=== PATIENT | female | born 1960 | race Two or more races ===

== ENCOUNTER 2019-10-06 13:57 | Outpatient (CLI) | payer OTHER ==
[2019-10-06] MEDS ORDERED: LISI-167 PO (14:43)
[2019-10-06 15:19] LABS: ALANINE AMINOTRANSFERASE 29 U/L (12-78); ALBUMIN 3.8 g/dL (3.4-5.0); ANION GAP 7 mmol/L (5-15); CHLORIDE 110 mmol/L (98-107)
[2019-10-06 15:29] LABS: ALKALINE PHOSPHATASE 172 U/L (45-117); BILIRUBIN,TOTAL 0.4 mg/dL (0.2-1.0); TOTAL PROTEIN 7.8 g/dL (6.4-8.2)
== END 2019-10-06 23:59 | disposition home or self-care (01) ==
LOC: STAR 13:57
PROVIDERS: ATTEND Surgery
DX: Z01.818 Encounter for other preprocedural examination (principal); Z11.59 Encounter for screening for other viral diseases; N63.10 Unspecified lump in the right breast, unspecified quadrant
CPT/HCPCS: 36415; 80053; U0001

== ENCOUNTER → 2019-10-06 | Outpatient (CLI) | payer OTHER ==
[~2019-10-06] MED LIST: LIDOCAINE 1%, 20ML ONE; LIDOCAINE 1%-EPI 1:100K, 20ML ONE; LISI-167 PO; SODIUM BICARBONATE 4.2%, 5ML ONE
== END | disposition home or self-care (01) ==
LOC: CFH 09:02
PROVIDERS: ATTEND Surgery
DX: D24.1 Benign neoplasm of right breast (principal)
CPT/HCPCS: 19281; J3490

== ENCOUNTER 2019-10-11 09:11 | Day surgery (SDC) | payer OTHER ==
[~2019-10-11] VITALS: Ht 165.1 cm; Wt 84.8 kg
[~2019-10-11 09:11] MED LIST changes: +BUPIVACAINE/PF-EPI 0.5% 1:200K ONE; -LIDOCAINE 1%, 20ML ONE; -LIDOCAINE 1%-EPI 1:100K, 20ML ONE; -SODIUM BICARBONATE 4.2%, 5ML ONE
[2019-10-11] MEDS ORDERED: LACTATED RINGERS 1,000 ML IV SCH ×2 (09:16→09:30)
[2019-10-11] MEDS ORDERED: PROPOFOL 50 ML ONE (09:17)
[2019-10-11] MEDS ORDERED: FENTANYL PF 250 MCG/5ML ONE (09:17)
[2019-10-11] MEDS ORDERED: MIDAZOLAM 1 MG/ML, 2ML ONE (09:17)
[2019-10-11] MEDS ORDERED: PROMETHAZINE 25 MG/ML, 1ML IVPush PRN (09:30)
[2019-10-11] MEDS ORDERED: CHLORHEXIDINE 15 ML UDC MM ONE ×2 (09:30)
[2019-10-11] MEDS ORDERED: DIAZEPAM 5 MG/ML, 2ML IVPush PRN (09:30)
[2019-10-11] MEDS ORDERED: ONDANSETRON 2MG/ML, 2ML IVPush PRN (09:30)
[2019-10-11] MEDS ORDERED: MEPERIDINE/PF 25MG/0.5ML IVPush PRN (09:30)
[2019-10-11] MEDS ORDERED: DIPHENHYDRAMINE 50 MG/ML, 1ML IVPush PRN (09:30)
[2019-10-11] MEDS ORDERED: OXYcodone 5 MG/5 ML ORAL.SOL UDC PO PRN (09:30)
[2019-10-11] MEDS ORDERED: EPHEDRINE 50 MG/ML, 1ML IVPush PRN (09:30)
[2019-10-11] MEDS ORDERED: morphine SULFATE 10 MG/ML, 1ML IVPush PRN (09:30)
[2019-10-11] MEDS ORDERED: FENTANYL PF 100 MCG/2ML IV PRN (09:30)
[2019-10-11] MEDS ORDERED: MIDAZOLAM 1 MG/ML, 2ML IV PRN (09:30)
[2019-10-11] MEDS ORDERED: ACETAMINOPHEN 325 MG TABLET PO PRN (09:30)
[2019-10-11] MEDS ORDERED: EPHEDRINE 50 MG/ML, 1ML IM PRN (09:30)
[2019-10-11] MEDS ORDERED: DEXAMETHASONE 4 MG/ML, 1ML ONE (09:40)
[2019-10-11] MEDS ORDERED: CEFAZOLIN 1,000 MG ONE (09:40)
[2019-10-11] MEDS ORDERED: PROPOFOL 10 MG/ML, 20ML ONE (09:40)
[2019-10-11] MEDS ORDERED: ONDANSETRON 2MG/ML, 2ML ONE (09:40)
[2019-10-11] MEDS ORDERED: ACETAMINOPHEN 650 MG/20.3 ML UDC ONE (10:43)
[2019-10-11] MEDS ORDERED: OXYcodone 5 MG/5 ML ORAL.SOL UDC ONE (10:48)
== END 2019-10-11 12:15 | disposition home or self-care (01) ==
LOC: OUT 09:11
PROVIDERS: ATTEND Surgery
DX: D05.11 Intraductal carcinoma in situ of right breast (principal)
CPT/HCPCS: 19125; 76098; 88307; 88341; 88342; 88360; J0690; J1100; J2250; J2405; J2704; J3010; J7120

== ENCOUNTER 2020-01-03 09:39 | Day surgery (SDC) | payer OTHER ==
[~2020-01-03] VITALS: Ht 165.1 cm; Wt 83.8 kg
[~2020-01-03 09:39] MED LIST changes: +BUPIVACAINE/EPI 0.5% 1:200K ONE; -BUPIVACAINE/PF-EPI 0.5% 1:200K ONE
[2020-01-03] MEDS ORDERED: LACTATED RINGERS 1,000 ML IV SCH (10:07)
[2020-01-03 10:28] VITALS: BP 168/88
[2020-01-03] MEDS ORDERED: PLEASE ENTER HEIGHT AND WEIGHT MC SCH (10:30)
[2020-01-03] MEDS ORDERED: CHLORHEXIDINE 15 ML UDC MM STA (10:32)
[2020-01-03] MEDS ORDERED: OMEP20TA62 PO (10:39)
[2020-01-03 11:37] LABS: CHLORIDE 110 mmol/L (98-107)
[2020-01-03 11:50] LABS: ALANINE AMINOTRANSFERASE 34 U/L (12-78); ALKALINE PHOSPHATASE 192 U/L (45-117); ANION GAP 7 mmol/L (5-15); BILIRUBIN,TOTAL 0.6 mg/dL (0.2-1.0); CALCIUM 9.5 mg/dL (8.5-10.1); CREATININE 0.75 mg/dL (0.55-1.02); TOTAL PROTEIN 7.9 g/dL (6.4-8.2)
[2020-01-03] MEDS ORDERED: CHLORHEXIDINE 15 ML UDC MM ONE (13:00)
[2020-01-03] MEDS ORDERED: MIDAZOLAM 1 MG/ML, 2ML ONE (13:04)
[2020-01-03] MEDS ORDERED: FENTANYL PF 250 MCG/5ML ONE (13:04)
[2020-01-03] MEDS ORDERED: hydrALAzine 20 MG/ML, 1ML IV PRN (13:30)
[2020-01-03] MEDS ORDERED: LABETALOL 5MG/ML, 20ML IV PRN (13:30)
[2020-01-03] MEDS ORDERED: FENTANYL PF 100 MCG/2ML IV PRN (13:30)
[2020-01-03] MEDS ORDERED: DIPHENHYDRAMINE 50 MG/ML, 1ML IVPush PRN (13:30)
[2020-01-03] MEDS ORDERED: HYDROcodone/APAP 7.5-325MG/15ML UDC PO PRN (13:30)
[2020-01-03] MEDS ORDERED: PROMETHAZINE 25 MG/ML, 1ML IVPush PRN (13:30)
[2020-01-03] MEDS ORDERED: HYDROmorphone 1 MG/ML, 1ML INJ IVPush PRN (13:30)
[2020-01-03] MEDS ORDERED: MEPERIDINE/PF 25MG/0.5ML IVPush PRN (13:30)
[2020-01-03] MEDS ORDERED: HALOPERIDOL 5 MG/ML IV PRN (13:30)
[2020-01-03] MEDS ORDERED: CEFAZOLIN 1,000 MG ONE (13:47)
[2020-01-03] MEDS ORDERED: PROPOFOL 10 MG/ML, 20ML ONE (13:47)
[2020-01-03] MEDS ORDERED: ONDANSETRON 2MG/ML, 2ML ONE (13:47)
[2020-01-03] MEDS ORDERED: DEXAMETHASONE 4 MG/ML, 1ML ONE (13:47)
== END 2020-01-03 16:10 | disposition home or self-care (01) ==
LOC: OR 09:39
PROVIDERS: ATTEND Surgery
DX: D05.11 Intraductal carcinoma in situ of right breast (principal); Z20.828 Contact with and (suspected) exposure to other viral communicable diseases; I10 Essential (primary) hypertension; K21.9 Gastro-esophageal reflux disease without esophagitis
CPT/HCPCS: 19301; 36415; 80053; 87635; 88305; J0690; J1100; J2250; J2405; J2704; J3010; J7120

== ENCOUNTER 2020-02-21 08:00 | Day surgery (SDC) | payer OTHER ==
[~2020-02-21] VITALS: Ht 157.5 cm; Wt 83.9 kg
[~2020-02-21 08:00] MED LIST changes: +ACETAMINOPHEN 325 MG TABLET PO PRN; -BUPIVACAINE/EPI 0.5% 1:200K ONE; +BUPIVACAINE/PF 0.25% ONE; +EPINEPHRINE 1 MG/ML, 1ML ONE; +FENTANYL PF 100 MCG/2ML IV PRN; +HYDROmorphone 1 MG/ML, 1ML INJ IVPush PRN; +KETOROLAC 30 MG/1 ML IVPush PRN; +LABETALOL 5MG/ML, 20ML IV PRN; +MEPERIDINE/PF 25MG/0.5ML IVPush PRN; +METHOCARBAMOL 1,000 MG in DEXTROSE 5% 100 ML IV PRN; +OMEP20TA62 PO; +ONDANSETRON 2MG/ML, 2ML IVPush PRN; +OXYcodone 5 MG/5 ML ORAL.SOL UDC PO PRN; +PLEASE ENTER HEIGHT AND WEIGHT MC SCH; +PROMETHAZINE 12.5 MG SUPP PR PRN; +hydrALAzine 20 MG/ML, 1ML IV PRN
[2020-02-21] MEDS ORDERED: CHLORHEXIDINE 15 ML UDC MM STA (08:38)
[2020-02-21 08:40] VITALS: BP 175/82
[2020-02-21] MEDS ORDERED: CHLORHEXIDINE 15 ML UDC ONE (08:54)
[2020-02-21] MEDS ORDERED: FENTANYL PF 250 MCG/5ML ONE (09:29)
[2020-02-21] MEDS ORDERED: PROPOFOL 10 MG/ML, 20ML ONE (09:40)
[2020-02-21] MEDS ORDERED: SUCCINYLCHOLINE 20 MG/ML, 10ML ONE (09:40)
[2020-02-21] MEDS ORDERED: ONDANSETRON 2MG/ML, 2ML ONE (09:40)
[2020-02-21] MEDS ORDERED: CEFAZOLIN 1,000 MG ONE (09:40)
[2020-02-21] MEDS ORDERED: DEXAMETHASONE 4 MG/ML, 1ML ONE (09:40)
[2020-02-21] MEDS ORDERED: FENTANYL PF 100 MCG/2ML ONE (10:33)
[2020-02-21] MEDS ORDERED: LACTATED RINGERS 1,000 ML IV SCH (13:30)
== END 2020-02-21 13:45 | disposition home or self-care (01) ==
LOC: OUT 08:00
PROVIDERS: ATTEND Surgery
DX: D05.11 Intraductal carcinoma in situ of right breast (principal); I10 Essential (primary) hypertension; K21.9 Gastro-esophageal reflux disease without esophagitis; Z83.3 Family history of diabetes mellitus; Z20.828 Contact with and (suspected) exposure to other viral communicable diseases; Z79.899 Other long term (current) drug therapy
CPT/HCPCS: 19301; 87635; 88307; J0171; J0330; J0690; J1100; J2405; J2704; J3010

== ENCOUNTER → 2020-04-20 | Outpatient (CLI) | payer OTHER ==
[~2020-04-20] MED LIST changes: -ACETAMINOPHEN 325 MG TABLET PO PRN; -BUPIVACAINE/PF 0.25% ONE; -EPINEPHRINE 1 MG/ML, 1ML ONE; -FENTANYL PF 100 MCG/2ML IV PRN; -HYDROmorphone 1 MG/ML, 1ML INJ IVPush PRN; -KETOROLAC 30 MG/1 ML IVPush PRN; -LABETALOL 5MG/ML, 20ML IV PRN; -MEPERIDINE/PF 25MG/0.5ML IVPush PRN; -METHOCARBAMOL 1,000 MG in DEXTROSE 5% 100 ML IV PRN; -ONDANSETRON 2MG/ML, 2ML IVPush PRN; -OXYcodone 5 MG/5 ML ORAL.SOL UDC PO PRN; -PLEASE ENTER HEIGHT AND WEIGHT MC SCH; -PROMETHAZINE 12.5 MG SUPP PR PRN; -hydrALAzine 20 MG/ML, 1ML IV PRN
== END | disposition home or self-care (01) ==
LOC: CVU 09:47
PROVIDERS: ATTEND Family Medicine
DX: I35.8 Other nonrheumatic aortic valve disorders (principal); R01.1 Cardiac murmur, unspecified
CPT/HCPCS: 93306

== ENCOUNTER 2020-05-25 11:37 | Outpatient (CLI) | payer OTHER | END 2020-05-25 23:59 | disposition home or self-care (01) | LOC: ROC 11:37 | PROVIDERS: ATTEND Radiology Radiation Oncology | DX: Z08 Encounter for follow-up examination after completed treatment for malignant neoplasm (principal); D05.11 Intraductal carcinoma in situ of right breast; I10 Essential (primary) hypertension; K21.9 Gastro-esophageal reflux disease without esophagitis; Z79.899 Other long term (current) drug therapy | CPT/HCPCS: 99442 ==

== ENCOUNTER 2020-12-20 07:43 | Outpatient (CLI) | payer OTHER | END 2020-12-20 23:59 | disposition home or self-care (01) | LOC: ROC 07:43 | PROVIDERS: ATTEND Radiology Radiation Oncology | DX: Z02.9 Encounter for administrative examinations, unspecified (principal) ==

== ENCOUNTER 2020-12-29 09:25 | Outpatient (CLI) | payer OTHER | END 2020-12-29 23:59 | disposition home or self-care (01) | LOC: ROC 09:25 | PROVIDERS: ATTEND Radiology Radiation Oncology | DX: Z02.9 Encounter for administrative examinations, unspecified (principal) ==